=== PATIENT | female | born 1980 | race Two or more races ===

== ENCOUNTER 2022-05-27 06:38 | Day surgery (SDC) | payer OTHER ==
[~2022-05-27] VITALS: Ht 152.4 cm; Wt 69.4 kg
[2022-05-27] MEDS ORDERED: MORGIDOX100 MG PO (10:43)
[2022-05-27] MEDS ORDERED: IBU600 MG PO (10:44)
== END 2022-05-27 14:00 | disposition home or self-care (01) ==
LOC: CIR.AMB 06:38
PROVIDERS: ATTEND Obstetrics & Gynecology
DX: D25.0 Submucous leiomyoma of uterus (principal); Z20.822 Contact with and (suspected) exposure to COVID-19; E11.9 Type 2 diabetes mellitus without complications; M19.90 Unspecified osteoarthritis, unspecified site